=== PATIENT | female | born 1970 | race Caucasian/White ===

== ENCOUNTER → 2024-09-23 | Outpatient (CLI) | payer OTHER, SELFPAY ==
--- NOTE | 2024-09-23 13:00 | XR_ITS ---
Examination: CT maxillofacial, without intravenous contrast. 2-D sagittal reconstructions. 3-D reconstructions. Date and time of exam:September 23, 2024 1315 hours Comparison June 29, 2018 INDICATIONS: Right ear pain headaches 6 years, clinical diagnosis acute mastoiditis CTDI: vol (mGy):17.4 DLP: (mGycm):336 Technique: Multiple axial images of maxillofacial region, 3.0 mm slice thickness. 2-D sagittal and coronal reconstructions. 3-D reconstructions. Low dose protocols were performed. One or more of the following dose reduction techniques were used; automated exposure control, adjustment of the mA and/or KV according to patient size, use of iterative reconstruction technique. Findings: Chronic right mastoiditis Negative for acute mastoiditis Negative for bilateral otitis media, negative for bilateral acquired cholesteatoma Frontal bone intact Mild ethmoid sinusitis Symmetrical optic globes Maxillary antra are clear No depression zygomatic arches Maxilla mandible intact IMPRESSION: Chronic right mastoiditis, negative for acute mastoiditis Negative for otitis media Negative for acquired cholesteatoma Mild chronic ethmoid sinusitis.
== END | disposition home or self-care (01) ==
LOC: CCTX 12:46
PROVIDERS: PCP Physician Assistant; Referring Provider Physician Assistant; Visit Provider Physician Assistant
DX: H70.91 Unspecified mastoiditis, right ear (principal); J32.2 Chronic ethmoidal sinusitis
CPT/HCPCS: 70486

== ENCOUNTER → 2025-05-31 | Outpatient (CLI) | payer OTHER, SELFPAY ==
--- NOTE | 2025-05-31 | XR_ITS ---
Examination: Bilateral hands, 6 views. Technique: AP, Oblique, Lateral each hand total 6 views Date and time of exam: May 31, 2025, 0751 hours INDICATION: Hand pain and joint locking involving the first digit beginning 4 months ago Findings: Prominent osteopenia Bilateral moderate osteoarthritis first carpal metacarpal joints Bilateral mild to moderate osteoarthritis distal interphalangeal joints second through fifth digits and interphalangeal joints first digits No erosive arthritis No fractures IMPRESSION: Bilateral moderate osteoarthritis first carpometacarpal joints Bilateral mild to moderate osteoarthritis distal interphalangeal joint second through fifth digits and interphalangeal joints first digits
--- NOTE | 2025-05-31 07:45 | XR_ITS ---
Examination: Screening digital mammography, bilateral Computer aided detection 3-D breast Tomosynthesis, bilateral Date and time of exam: May 31, 2025, 0740 hours, compared to mammogram dated 11 November [id number] Indication: Screening Technique: Nonmagnified MLO, CC views of the breasts to been obtained, reconstructed from 3-D Tomosynthesis images. R2 computer aided detection program utilized for evaluation of suspicious masses and/or abnormal calcifications. 3-D Tomosynthesis images obtained. Findings: Scattered areas of fibroglandular density. Benign calcifications. No interval suspicious masses Impression: BI-RADS category II: Benign Findings. Recommend 1 year follow-up mammogram.
== END | disposition home or self-care (01) ==
PROVIDERS: PCP Registered Nurse Community Health; Referring Provider Registered Nurse Community Health; Visit Provider Registered Nurse Community Health
DX: Z12.31 Encounter for screening mammogram for malignant neoplasm of breast (principal); R92.323 Mammographic fibroglandular density, bilateral breasts; R92.1 Mammographic calcification found on diagnostic imaging of breast; M18.0 Bilateral primary osteoarthritis of first carpometacarpal joints; M19.042 Primary osteoarthritis, left hand; M19.041 Primary osteoarthritis, right hand
CPT/HCPCS: 73130; 77063; 77067

== ENCOUNTER → 2025-06-02 | Outpatient (CLI) | payer OTHER, SELFPAY ==
--- NOTE | 2025-06-02 13:00 | XR_ITS ---
EXAMINATION: Thyroid sonography complete TECHNIQUE: Grayscale sonographic images thyroid lobes Date and time: June 02, 2025, 1349 hours INDICATIONS: Hypothyroidism diagnosis 3 years ago. FINDINGS: Right thyroid 2.9 cm Left thyroid 2.8 cm No thyroid nodules IMPRESSION: Small thyroid lobes bilaterally no thyroid nodules Given the patient's presentation, consider correlation with oral I-123 thyroid uptake and scan
== END | disposition home or self-care (01) ==
LOC: CDIM 13:30
PROVIDERS: PCP Registered Nurse Community Health; Referring Provider Registered Nurse Community Health; Visit Provider Registered Nurse Community Health
DX: E03.9 Hypothyroidism, unspecified (principal)
CPT/HCPCS: 76536

== ENCOUNTER → 2025-07-11 | Outpatient (CLI) | payer OTHER, SELFPAY ==
[2025-07-11 17:24] LABS: Free T4 (Free Thyroxine) 1.46 ng/dL (0.89-1.76); Thyroid Stimulating Hormone 0.02 uIU/mL (0.55-4.78)
[2025-07-15 06:19] LABS: Thyroid Peroxidase Antibodies* 318 IU/mL (<9)
== END | disposition home or self-care (01) ==
LOC: COPL 15:29
PROVIDERS: PCP Registered Nurse Community Health; Referring Provider Registered Nurse Community Health; Visit Provider Registered Nurse Community Health
DX: E03.9 Hypothyroidism, unspecified (principal)
CPT/HCPCS: 36415; 84439; 84443; 86376